=== PATIENT | male | born 1985 | race Caucasian/White ===

== ENCOUNTER 2024-05-01 23:07 | Emergency (ER) | payer OTHER ==
[~2024-05-01] VITALS: Ht 185.4 cm; Wt 127.0 kg
[2024-05-01 23:14] VITALS: BP 126/77; PULSE 95; RESP 18; TEMP 98; O2SAT 96
[2024-05-01 23:39] VITALS: BP 126/77; PULSE 95; RESP 18; TEMP 98; O2SAT 96
== END 2024-05-01 23:39 ==
LOC: MED 23:07
DX: Z02.89 Encounter for other administrative examinations (principal); V49.88XA Car occupant (driver) (passenger) injured in other specified transport accidents, initial encounter; Y93.89 Activity, other specified; Y92.89 Other specified places as the place of occurrence of the external cause; Y99.8 Other external cause status
CPT/HCPCS: 99283